=== PATIENT | female | born 1995 | race Caucasian/White ===

== ENCOUNTER 2020-09-09 12:06 | Emergency (ER) | payer OTHER ==
[~2020-09-09] VITALS: Ht 165.1 cm; Wt 68.0 kg
[~2020-09-09 12:06] MED LIST: ADDERALL 30 MG30 MG PO; AMOXICILLIN500 M1 PO; CITRANATAL 901 EAC1 PO; DOXYCYCLINE 10100 MG PO; FLEXERIL PO; IRON; NOHOMEMEDICATIONS; NORCO 5-325 TA1 EACH PO; PRENATAL; PROVENTIL IH; TAMIFLU; VALACYCLOVIR500 MG PO
[2020-09-09] MEDS ORDERED: CEPHALEXIN500 MG PO (12:32)
[2020-09-09] MEDS ORDERED: MEDROLDOSEPACK PO (12:32)
[2020-09-09 12:40] VITALS: BP 116/81
== END 2020-09-09 12:41 | disposition home or self-care (01) ==
LOC: M.ERS 12:06
DX: L73.8 Other specified follicular disorders (principal)